=== PATIENT | female | born 1965 | race Caucasian/White ===

== ENCOUNTER → 2016-11-26 | Outpatient (CLI) | payer BC ==
[2016-11-26 06:09] LABS: ALANINE AMINOTRANSFERASE 28 U/L (9-52); ALKALINE PHOSPHATASE 62 U/L (38-126); ANION GAP 12 (5-19); ASPARTATE AMINO TRANSFERASE 25 U/L (14-36); BILIRUBIN,TOTAL 0.5 mg/dL (0.2-1.3); BLOOD UREA NITROGEN 16 mg/dL (7-20); CALCIUM 9.4 mg/dL (8.4-10.2); CARBON DIOXIDE 28 mmol/L (22-30); CHLORIDE 105 mmol/L (98-107); CHOLESTEROL 202.92 mg/dL (0-200); CREATININE RESULT 0.97 mg/dL (0.52-1.25); Direct HDL 72 mg/dL (>40); GLUCOSE 81 mg/dL (75-110); POTASSIUM 4.5 mmol/L (3.6-5.0); SODIUM 144.8 mmol/L (137-145); TOTAL PROTEIN 6.7 g/dL (6.3-8.2); TRIGLYCERIDES 131 mg/dL (<150)
[2016-11-26 06:19] LABS: DIRECT LDL 98 mg/dL (<100)
== END ==
LOC: LAB 05:03
PROVIDERS: ATTEND Specialist
DX: Z13.6 Encounter for screening for cardiovascular disorders (principal); Z13.1 Encounter for screening for diabetes mellitus; Z13.29 Encounter for screening for other suspected endocrine disorder; R10.12 Left upper quadrant pain
CPT/HCPCS: 36415; 80053; 80061; 83036; 84443; 86677

== ENCOUNTER → 2018-07-18 | Outpatient (CLI) | payer BC ==
--- NOTE | 2018-07-18 16:16 | RADIOLOGY REPORT (SQ) ---
EXAM DESCRIPTION: OS CALCIS/HEEL RIGHT COMPLETED DATE/TIME: 07/18/2018 3:11 pm REASON FOR STUDY: PAIN IN RT FOOT M79.671 PAIN IN RIGHT FOOT COMPARISON: None. NUMBER OF VIEWS: Two views. TECHNIQUE: Plantar and oblique radiographic images acquired of the right calcaneous. LIMITATIONS: None. FINDINGS: Moderate plantar and superior calcaneal spurs. No evidence of insufficiency fracture. No aggressive bone lesion. IMPRESSION: Calcaneal spurs. TECHNICAL DOCUMENTATION: JOB ID: [id number] [employer]- All Rights Reserved Reading location - IP/workstation name: [facility]-COUNT INCLUDES THE [email or web address]
== END ==
LOC: OD 14:52
PROVIDERS: ATTEND Family Medicine
DX: M79.671 Pain in right foot (principal); M77.31 Calcaneal spur, right foot

== ENCOUNTER → 2018-12-26 | Outpatient (CLI) | payer BC ==
[2018-12-26 09:08] LABS: ABSOLUTE BASOPHILS # (AUTO) 0.1 10^3/uL (0.0-0.2); ABSOLUTE EOSINOPHILS # (AUTO) 0.1 10^3/uL (0.0-0.6); ABSOLUTE LYMPHOCYTES (AUTO) 1.7 10^3/uL (0.5-4.7); ABSOLUTE MONOCYTES (AUTO) 0.5 10^3/uL (0.1-1.4); ABSOLUTE NEUT (AUTO) 3.4 10^3/uL (1.7-8.2); BASOPHILS % (AUTO) 1.1 % (0-2); HEMATOCRIT 39.3 % (36.0-47.0); HEMOGLOBIN 13.8 g/dL (12.0-15.5); LYMPHOCYTES % (AUTO) 29.6 % (13-45); MEAN CORPUSCULAR HGB CONC 35.1 g/dL (32.0-36.0); MEAN CORPUSCULAR VOLUME 88 fl (80-97); MONOCYTES % (AUTO) 8.4 % (3-13); PLATELET COUNT 266 10^3/uL (150-450); RED BLOOD COUNT 4.44 10^6/uL (3.72-5.28); RED CELL DISTRIBUTION WIDTH 12.8 % (11.5-14.0); SEGMENTED NEUTROPHILS % (AUTO) 58.9 % (42-78); TOTAL CELLS COUNTED % (AUTO) 100 %; WHITE BLOOD COUNT 5.7 10^3/uL (4.0-10.5)
[2018-12-26 09:31] LABS: CHOLESTEROL 193.43 mg/dL (0-200); TRIGLYCERIDES 95 mg/dL (<150)
[2018-12-26 09:41] LABS: DIRECT LDL 90 mg/dL (<100)
== END ==
LOC: OD 07:59
PROVIDERS: ATTEND Specialist
DX: Z13.1 Encounter for screening for diabetes mellitus (principal); Z13.220 Encounter for screening for lipoid disorders
CPT/HCPCS: 36415; 80061; 83036; 85025

== ENCOUNTER 2019-03-23 10:00 | Day surgery (SDC) | payer BC ==
[~2019-03-23 10:00] MED LIST: CHONDR SU A NA/HYALUR INTRAOC KIT (SURGICARE) ONE; EPINEPHRINE INJ/PF 1 MG/1 ML AMPULE ONE; FENTANYL CITRATE INJ/PF 100 MCG/2 ML AMPUL ONE; LIDOCAINE 1%/PHENYLEPHRINE 1.5% 1 ML VIAL ONE; MIDAZOLAM 2 MG/2 ML INJ ONE
[2019-03-23] MEDS: TROPICAMIDE 1% OPH SOLN 3 ML OS PRN ×3 (10:50→11:11)
[2019-03-23] MEDS: TETRACAINE HCL 0.5% OPH SOLN 4 ML OS PRN ×3 (10:50→11:21)
[2019-03-23] MEDS: BESIFLOXACIN HCL 0.6% OPH SUSP 5 ML BOTTLE OS PRN ×4 (10:51→11:52)
[2019-03-23] MEDS: CYCLOPENTOLATE 0.2%/PHENYLEPHRINE 1% OPH SOLN 2 ML OS PRN ×3 (10:51→11:11)
[2019-03-23] MEDS: KETOROLAC TROMETHAMINE 0.45% 4 DROP/0.4 ML DROPERETTE OS PRN ×2 (10:52→12:12)
[2019-03-23] MEDS ORDERED: MIDAZOLAM 2 MG/2 ML INJ ONE (11:13)
[2019-03-23] MEDS: DORZOLAMIDE HCL 2%/TIMOLOL MALEAT 0.5% OPH SOLN 10 ML OS PRN ×2 (11:52)
--- NOTE | 2019-03-23 20:40 | [facility] OPERATIVE REPORT E ---
[facility] NAME: AVIS JESSICA AGE: 53Y DATE OF SURGERY: 03/23/2019 ROOM: PREOPERATIVE DIAGNOSIS: CATARACT LEFT EYE. POSTOPERATIVE DIAGNOSIS: CATARACT LEFT EYE. OPERATION: Cataract extraction with insertion of an intraocular lens implant of the left eye with a toric multifocal lens. SURGEON: BISI MCCLELLAN M.D. ANESTHESIA: topical COMPLICATIONS: None. ESTIMATED BLOOD LOSS: None. PROCEDURE: After appropriate consent was obtained and calculations made, the patient was brought back to the operating room where the patient was prepped and draped in sterile fashion. A lid speculum was placed and attention was directed to a paracentesis where a paracentesis blade made a small incision. Viscoelastic was then used to inflate the anterior chamber. Next a 2.4 mm incision was made with the paracentesis blade. A continuous capsulorhexis forceps of approximately 5 mm was done using a cystitome and capsulorhexis forceps. Hydrodissection was carried out to make the lens freely mobile and then a divide and conquer technique was used to remove the lens with a CDE of approximately 4.0. Following this, the remaining cortical material was removed with irrigation/aspiration. After this the patient was then again marked. The marking procedure started in the preoperative holding area where 180 and 0 was marked with a marker. Now that the patient was in the operating room a 360-degree marker was used to lorna the axis at approximately 110 degrees and a toric lens of 19.5 diopters [id number] was injected into the bag after filling with viscoelastic and rotated to 81 degrees. The I/A was used to remove the viscoelastic material and the toric lens appeared to be appropriately aligned. Besivance and Cosopt were instilled into the eye and a rigid clear sheild placed. The patient returned to postoperative recovery in stable condition. DICTATING PHYSICIAN: BISI MCCLELLAN M.D. [id number] PHY#: [id number] ID: [id number] JOB#: [id number] ACCT: [id number] cc:BISI MCCLELLAN M.D. > MTDD
--- NOTE | 2019-03-23 20:40 | SURGICARE DISCHARGE SUMMARY E ---
[facility] Discharge Summary NAME: AVIS JESSICA AGE: 53Y ADMITTED: 03/23/2019 DISCHARGED: This is a 53-year-old female who underwent cataract extraction with toric IOL to the left eye. DIAGNOSIS: Cataract left eye. She underwent surgery because she was having difficulty driving at night and difficulty judging which lia she is in. She should be on a regular diet. No bending at the waist and no heavy lifting. She should use her moxifloxacin, Prolensa, and Predforte at 3:00 p.m. and 8:00 p.m. and sleep with a rigid shield. I will see her for her 1-day postop tomorrow. DICTATING PHYSICIAN: BISI MCCLELLAN M.D. [id number] PHY#: [id number] ID: [id number] JOB#: [id number] ACCT: [id number] cc:BISI MCCLELLAN M.D. > MTDD
== END 2019-03-26 12:34 | disposition home or self-care (01) ==
LOC: SC 10:00
PROVIDERS: ATTEND Internal Medicine
DX: H25.13 Age-related nuclear cataract, bilateral (principal); Z79.899 Other long term (current) drug therapy; H04.123 Dry eye syndrome of bilateral lacrimal glands
CPT/HCPCS: 66984; 00142; V2787; J2250; J3490 ×2; J0171; J3010; J2370; 142

== ENCOUNTER 2019-04-27 08:41 | Day surgery (SDC) | payer BC ==
[~2019-04-27 08:41] MED LIST changes: -CHONDR SU A NA/HYALUR INTRAOC KIT (SURGICARE) ONE; -EPINEPHRINE INJ/PF 1 MG/1 ML AMPULE ONE; -FENTANYL CITRATE INJ/PF 100 MCG/2 ML AMPUL ONE; +KETOROLAC TROMETHAMINE 0.45% 4 DROP/0.4 ML DROPERETTE OD PRN; -LIDOCAINE 1%/PHENYLEPHRINE 1.5% 1 ML VIAL ONE; -MIDAZOLAM 2 MG/2 ML INJ ONE
[2019-04-27] MEDS ORDERED: MIDAZOLAM 2 MG/2 ML INJ ONE ×3 (09:00→10:30)
[2019-04-27] MEDS: BESIFLOXACIN HCL 0.6% OPH SUSP 5 ML BOTTLE OD PRN ×4 (09:40→10:26)
[2019-04-27] MEDS: CYCLOPENTOLATE 0.2%/PHENYLEPHRINE 1% OPH SOLN 2 ML OD PRN ×3 (09:40→10:00)
[2019-04-27] MEDS: TETRACAINE HCL 0.5% OPH SOLN 4 ML OD PRN ×4 (09:40→10:05)
[2019-04-27] MEDS: TROPICAMIDE 1% OPH SOLN 3 ML OD PRN ×3 (09:40→10:00)
[2019-04-27] MEDS: EPINEPHRINE INJ/PF 1 MG/1 ML AMPULE ONE ×2 (10:13)
[2019-04-27] MEDS: LIDOCAINE 1%/PHENYLEPHRINE 1.5% 1 ML VIAL ONE ×2 (10:13)
[2019-04-27] MEDS: CHONDR SU A NA/HYALUR INTRAOC KIT (SURGICARE) ONE ×2 (10:13)
[2019-04-27] MEDS: DORZOLAMIDE HCL 2%/TIMOLOL MALEAT 0.5% OPH SOLN 10 ML OD PRN ×2 (10:26)
--- NOTE | 2019-04-28 11:25 | SURG[facility]ARE DISCHARGE SUMMARY E ---
[facility] Discharge Summary NAME: AVIS JESSICA AGE: 53Y ADMITTED: 04/27/2019 DISCHARGED: 04/27/2019 DIAGNOSIS: Cataract, right eye. SUMMARY: This is a 53-year-old female who underwent cataract extraction, right eye. She underwent surgery because she was having difficulty with glare on the computer and driving at night. DISCHARGE INSTRUCTIONS: She should be on a regular diet, no bending at her waist, and no heavy lifting. She should use her moxifloxacin, Prolensa, and Durezol at 3 p.m. and 8 p.m. and sleep with a rigid shield. I will see her for a 1-day postoperative tomorrow. DICTATING PHYSICIAN: BISI MCCLELLAN M.D. [id number] PHY#: [id number] ID: [id number] JOB#: [id number] ACCT: [id number] cc:BISI MCCLELLAN M.D. > MTDD
--- NOTE | 2019-04-28 11:25 | SURG[facility]ARE OPERATIVE REPORT E ---
[facility] Operative Report NAME: AVIS JESSICA AGE: 53Y DATE OF SURGERY: 04/27/2019 ROOM: PREOPERATIVE DIAGNOSIS: CATARACT, RIGHT EYE. POSTOPERATIVE DIAGNOSIS: CATARACT, RIGHT EYE. OPERATION: Cataract extraction with insertion of an IOL of the right eye. SURGEON: BISI MCCLELLAN M.D. ANESTHESIA: Topical. PROCEDURE: After obtaining appropriate consent, the patient's right eye was prepped and draped in sterile fashion as well as the surgeon in a sterile manner and cataract surgery was started. First a paracentesis blade was used to make a side-port incision. Viscoelastic was used to inflate the anterior chamber. Next a 2.4 mm incision was made with a 2.4 mm blade, clear corneal temporally. A continuous capsulorrhexis was made using a cystotome and Utrata forceps. Following this hydrodissection was carried out to make the lens fully loose and mobile and it was rotated 90 degrees. Following this, a xqzdvd-tij-wspfxzk technique was used to phacoemulsify the lens with a CDE of 3.34. The remaining cortex was removed with irrigation/aspiration. Provisc was instilled into the capsular bag to inflate the bag. A SN60WF, 20.0 diopter lens was placed. The remaining viscoelastic material was removed with irrigation/aspiration. Following this, the incision was found to be watertight. Besivance was instilled into the eye and a protective shield was placed over the eye. The patient returned to the postoperative recovery in stable condition. DICTATING PHYSICIAN: BISI MCCLELLAN M.D. [id number] PHY#: [id number] ID: [id number] JOB#: [id number] ACCT: [id number] cc:BISI MCCLELLAN M.D. >
== END 2019-04-27 10:56 | disposition home or self-care (01) ==
LOC: SC 08:41
PROVIDERS: ATTEND Internal Medicine
DX: H25.11 Age-related nuclear cataract, right eye (principal); Z96.1 Presence of intraocular lens; Z85.828 Personal history of other malignant neoplasm of skin
CPT/HCPCS: 66984; J2250; J3490 ×2; J0171; J2370; 142; V2632

== ENCOUNTER → 2019-05-17 | Outpatient (CLI) | payer BC ==
--- NOTE | 2019-05-17 18:15 | RADIOLOGY REPORT (SQ) ---
EXAM DESCRIPTION: MRI CERVICAL SPINE WITHOUT COMPLETED DATE/TIME: 05/17/2019 5:24 pm REASON FOR STUDY: M54.12 RADICULOPATHY, CERVICAL REGION M54.12 RADICULOPATHY, CERVICAL REGION COMPARISON: None. TECHNIQUE: Sagittal and Axial imaging includes T1, T2, STIR and gradient echo sequences. LIMITATIONS: None. FINDINGS: ALIGNMENT: Normal. VERTEBRAE: Intact. BONE MARROW: Mild reactive marrow changes at C6-7. DISCS: Normal. No significant abnormal signal or loss of height. HARDWARE: None in the spine. CORD AND BASE OF BRAIN: Normal in size and signal intensity. SOFT TISSUES: No soft tissue masses. C1-C2: No significant spinal stenosis. C2-C3: No significant spinal stenosis or exit foraminal stenosis. C3-C4: No significant spinal stenosis or exit foraminal stenosis. C4-C5: No significant spinal stenosis or exit foraminal stenosis. C5-C6: A shallow broad-based disc/ osteophyte complex narrows the anterior CSF space but does not imp yasmine upon or deform the spinal cord. There is no foraminal stenosis. C6-C7: There is a shallow broad-based disc/ osteophyte complex with no central canal or foraminal arlet nosis. C7-T1: No significant spinal stenosis or exit foraminal stenosis. UPPER THORACIC: Incompletely imaged. No significant spinal stenosis or exit foraminal stenosis. OTHER: No other significant finding. IMPRESSION: There are shallow broad-based disc/ osteophyte complexes at C5-6 and C6-7 with no centra l canal or foraminal stenoses. TECHNICAL DOCUMENTATION: JOB ID: [id number] [employer]- All Rights Reserved Reading location - IP/workstation name: [email or web address]
== END ==
LOC: RAD 16:36
PROVIDERS: ATTEND Family Medicine
DX: M54.12 Radiculopathy, cervical region (principal)
CPT/HCPCS: 72141

== ENCOUNTER → 2020-10-24 | Outpatient (CLI) | payer BC ==
[~2020-10-24] MED LIST changes: +COVID-19 VACCINE (PFIZER)/PF 30 MCG/0.3 ML VIAL IM ONE; +EPINEPHRINE INJ/PF 1 MG/1 ML AMPULE IM PRN; -KETOROLAC TROMETHAMINE 0.45% 4 DROP/0.4 ML DROPERETTE OD PRN
== END ==
LOC: EMPHEALTH 08:50
PROVIDERS: ATTEND Internal Medicine
DX: Z23 Encounter for immunization (principal)
CPT/HCPCS: 91300

== ENCOUNTER 2020-11-10 17:42 | Emergency (ER) | payer BC ==
[2020-11-10] MEDS ORDERED: HYDROCODONE/ACETAMINOPHEN 5-325 MG TABLET PO ONE ×2 (18:15→21:13)
--- NOTE | 2020-11-10 18:39 | ER Document Report ---
ED Medical Screen (RME) - General Chief Complaint: Fall Stated Complaint: FALL/LACERATION,ARM PAIN Time Seen by Provider: 11/10/20 18:10 Primary Care Provider: HAN RAE MD [Primary Care Provider] - Follow up as needed Mode of Arrival: Ambulatory Information source: Patient Notes: HPI; 55-year-old female presents to the emergency room complaining of right sh oulder and upper arm pain. Patient states she slipped and fell at home landing on her right shoulder and right upper arm. States unable to move arm secondary to pain. No medications for symptoms. Patient is right-handed. Also hit her right eyebrow sustaining a laceration but denies any loss of consciousness. Tetanus is up-to-date. PE: Alert and oriented x3. PERRLA, EOMI. 1/4 cm laceration noted to the right eyelid. The bleeding is controlled. Lungs: Clear to auscultation without rales, rhonchi, wheezes. Heart: Regular rate rhythm without murmurs, rubs, gallops. Tenderness on palpation to the anterior aspect of the right shoulder. Humerus is nontender to palpation. Able to fully move right elbow and right wrist without difficulty or pain. Unable to fully assess shoulder secondary to pain. I have greeted and performed a rapid initial assessment of this patient. A comprehensive ED assessment and evaluation of the patient, analysis of test results and completion of the medical decision making process will be conducted by additional ED providers. I have specifically instructed the patient or family members with the patient to immediately return to any nursing staff óscar uld anything change in the patient's condition or with their chief complaint. TRAVEL OUTSIDE OF THE [place] IN LAST 30 DAYS: No - Related Data Allergies/Adverse Reactions: Penicillins Allergy (Verified 11/10/20 18:10) unknown Past Medical History - Past Medical History Cardiac Medical History: Denies: Hx Coronary Artery Disease, Hx Heart Attack, Hx Hypertension Pulmonary Medical History: Denies: Hx Asthma, Hx Bronchitis, Hx COPD, Hx Pneumonia Neurological Medical History: Denies: Hx Cerebrovascular Accident, Hx Seizures GI Medical History: Denies: Hx Hepatitis, Hx Hiatal Hernia, Hx Ulcer Musculoskeltal Medical History: Denies Hx Arthritis Infectious Medical History: Denies: Hx Hepatitis Past Surgical History: Denies: Hx Hysterectomy, Hx Mastectomy, Hx Open Heart Surgery, Hx Pacemaker - Immunizations Hx Diphtheria, Pertussis, Tetanus Vaccination: Yes Physical Exam - Vital signs Vitals: Temp Pulse Resp BP Pulse Ox 99 F 62 16 105/66 100 11/10/20 18:14 11/10/20 18:14 11/10/20 18:14 11/10/20 18:14 11/10/20 18:14 Course - Vital Signs Vital signs: Temp Pulse Resp BP Pulse Ox 99 F 62 16 105/66 100 11/10/20 18:14 11/10/20 18:14 11/10/20 18:14 11/10/20 18:14 11/10/20 18:14 Doctor's Discharge - Discharge Referrals: HAN RAE MD [Primary Care Provider] - Follow up as needed
--- NOTE | 2020-11-10 18:51 | RADIOLOGY REPORT (SQ) ---
EXAM DESCRIPTION: HUMERUS RIGHT; SHOULDER RIGHT 2 OR MORE VIEWS IMAGES COMPLETED DATE/TIME: 11/10/2020 5:36 pm REASON FOR STUDY: injury COMPARISON: None. NUMBER OF VIEWS: Four views TECHNIQUE: AP and lateral views of the right humerus and AP internal rotation and scapular Y views o f the right shoulder. LIMITATIONS: None. FINDINGS: MINERALIZATION: Normal. BONES: There appears to be an acute impacted nondisplaced and nonangulated fracture of the right lauren ral neck. Normal glenohumeral joint space alignment. The clavicle is intact. Mild osteoarthritis a t the acromioclavicular joint. The glenoid is intact. Scapula is intact. Visualized ribs are intac t. SOFT TISSUES: Small glenohumeral joint effusion. OTHER: No other significant finding. IMPRESSION: 1. Acute impacted nondisplaced fracture proximal right humeral neck. Small glenohumeral joint effusi on. 2. Mild osteoarthritis at the acromioclavicular joint. TECHNICAL DOCUMENTATION: JOB ID: [id number] 2010 [employer]- All Rights Reserved Reading location - IP/workstation name: [id number]
--- NOTE | 2020-11-10 18:51 | RADIOLOGY REPORT (SQ) ---
EXAM DESCRIPTION: HUMERUS RIGHT; SHOULDER RIGHT 2 OR MORE VIEWS IMAGES COMPLETED DATE/TIME: 11/10/2020 5:36 pm REASON FOR STUDY: injury COMPARISON: None. NUMBER OF VIEWS: Four views TECHNIQUE: AP and lateral views of the right humerus and AP internal rotation and scapular Y views o f the right shoulder. LIMITATIONS: None. FINDINGS: MINERALIZATION: Normal. BONES: There appears to be an acute impacted nondisplaced and nonangulated fracture of the right lauren ral neck. Normal glenohumeral joint space alignment. The clavicle is intact. Mild osteoarthritis a t the acromioclavicular joint. The glenoid is intact. Scapula is intact. Visualized ribs are intac t. SOFT TISSUES: Small glenohumeral joint effusion. OTHER: No other significant finding. IMPRESSION: 1. Acute impacted nondisplaced fracture proximal right humeral neck. Small glenohumeral joint effusi on. 2. Mild osteoarthritis at the acromioclavicular joint. TECHNICAL DOCUMENTATION: JOB ID: [id number] 2010 [employer]- All Rights Reserved Reading location - IP/workstation name: [id number]
[2020-11-10] MEDS ORDERED: ONDANSETRON 4 MG TAB.RAPDIS PO ONE (21:15)
--- NOTE | 2020-11-10 22:10 | ER Document Report ---
ED Fall - General Chief Complaint: Fall Stated Complaint: FALL/LACERATION,ARM PAIN Time Seen by Provider: 11/10/20 18:10 Primary Care Provider: HAN RAE MD [Primary Care Provider] - Follow up as needed CATHY TORRES JR, DO [ACTIVE PROVISIONAL STAFF] - Follow up in 3-5 days Mode of Arrival: Ambulatory Information source: Patient TRAVEL OUTSIDE OF THE [place] IN LAST 30 DAYS: No - HPI Notes: Patient is a 55-year-old female who presents after a fall. Patient states that she was folding laundry and tripped over the laundry basket. She fell onto her right arm and hit her right face. Patient denies loss of consciousness. She has pain to her right arm. She also has a cut to her left eyebrow. Patient is left-handed. This happened just prior to arrival. Patient denies any other injuries. She is not on any blood thinners. Her last tetanus was in 2018 so she is up-to-date. - Related data Allergies/Adverse Reactions: Penicillins Allergy (Verified 11/10/20 18:10) unknown Past Medical History - General Information source: Patient - Social History Smoking Status: Never Smoker Family History: Reviewed & Not Pertinent - Past Medical History Cardiac Medical History: Denies: Hx Coronary Artery Disease, Hx Heart Attack, Hx Hypertension Pulmonary Medical History: Denies: Hx Asthma, Hx Bronchitis, Hx COPD, Hx Pneumonia Neurological Medical History: Denies: Hx Cerebrovascular Accident, Hx Seizures GI Medical History: Denies: Hx Hepatitis, Hx Hiatal Hernia, Hx Ulcer Musculoskeletal Medical History: Denies Hx Arthritis Infectious Medical History: Denies: Hx Hepatitis Past Surgical History: Reports: Hx Cholecystectomy. Denies: Hx Hysterectomy, Hx Mastectomy, Hx Open Heart Surgery, Hx Pacemaker - Immunizations Hx Diphtheria, Pertussis, Tetanus Vaccination: Yes Review of Systems - Review of Systems Notes: CONSTITUTIONAL: No fever, fatigue or weight loss. SKIN: No rash. HENT: No congestion, ear pain, or sore throat. EYES: No recent vision problems or eye pain. ENDOCRINE: No thyroid problems. No polyuria or polydipsia. CARDIOVASCULAR: No chest pain or edema. RESPIRATORY: No cough, shortness of breath, congestion, or wheezing. GASTROINTESTINAL: No abdominal pain. Positive for nausea after pain medicine. MUSCULOSKELETAL: Positive for left arm pain. NEUROLOGIC: No seizures. No headache, focal weakness or sensory changes. HEMATOLOGIC: No unusual bruising or bleeding. PSYCHIATRIC: No depression or anxiety. Physical Exam - Vital signs Vitals: Temp Pulse Resp BP Pulse Ox 99 F 62 16 105/66 100 11/10/20 18:14 11/10/20 18:14 11/10/20 18:14 11/10/20 18:14 11/10/20 18:14 - General General appearance: Appears well In distress: None Notes: VITAL SIGNS: Within normal limits. GENERAL: No acute distress, non-toxic appearance. HEAD: Normal with no signs of head trauma. EYES: Conjunctiva normal, no discharge. Small 1 cm laceration to the left lower eyebrow area. Bleeding is controlled. EARS: Hearing grossly intact. NOSE: Normal. NECK: Normal range of motion, no tenderness. CHEST: Clear breath sounds bilaterally. No wheezes, rales, or rhonchi. CARDIAC: Regular rate and rhythm. VASCULAR: No Edema. Peripheral pulses normal and equal in all extremities. Strong right radial pulse. ABDOMEN: Normal and soft. MUSCULOSKELETAL: Disomfort to left shoulder. No lacerations to the arm. Range of motion is limited due to pain. Sensation testing is intact. NEUROLOGICAL: Alert and oriented x 3. No focal sensory or strength deficits. Speech normal. Follows commands appropriately. PSYCHIATRIC: Normal Affect, judgement and mood. SKIN: Normal appearance with no rashes or lesions. Course - Re-evaluation Re-evalutation: 11/11/20 01:53 Patient has a humeral fracture. I did discuss with Dr. Torres from orthopedics. He recommended sending her home in a sling. He will follow-up in the office. Patient's laceration was repaired with Dermabond. It was very superficial. Area was cleaned and explored with no foreign body. She did start developing some ecchymosis around her eye several hours in her ER stay. She is nontender. Do not believe she requires a CT scan. Patient will be discharged with hydrocodone and Zofran. She was given strict return precautions. - Vital Signs Vital signs: Temp Pulse Resp BP Pulse Ox 98.9 F 73 14 110/72 97 11/10/20 23:56 11/10/20 23:56 11/10/20 23:56 11/10/20 23:56 11/10/20 23:56 - Laboratory Results Critical Laboratory Results Reviewed: No Critical Results - Radiology Results Critical Radiology Results Reviewed: No Critical Results Procedures - Laceration/Wound Repair Right Face Time completed: 23:00 Wound length (cm): 1 Wound's Depth, Shape: Superficial Laceration pre-procedure: Shur-Clens applied Wound explored: Clean Wound Repaired With: Dermabond Complications: No Discharge - Discharge Clinical Impression: Right humeral fracture Qualifiers: Encounter type: initial encounter Humerus Location: proximal Fracture type: closed Fracture morphology: other fracture Fracture alignment: nondisplaced Qualified Code(s): S42.294A - Other nondisplaced fracture of upper end of right humerus, initial encounter for closed fracture Fall Qualifiers: Encounter type: initial encounter Qualified Code(s): W19.XXXA - Unspecified fall, initial encounter Laceration of face Qualifiers: Encounter type: initial encounter Qualified Code(s): S01.81XA - Laceration without foreign body of other part of head, initial encounter Condition: Stable Disposition: HOME, SELF-CARE Instructions: Laceration Care ([facility]), Fracture Proximal Humerus, Temporary Sling ([facility]) Additional Instructions: Please follow-up with orthopedics this week. Return to the ER immediately for any numbness, tingling, worsening pain. Your laceration was Dermabonded today. Keep the area clean and dry. Do not use bacitracin on it. Make sure you wear sunscreen to prevent scarring after the injury is healed. You may also use Mederma. Return to the ER for any redness, swelling, fevers, worsening symptoms. Prescriptions: Ondansetron [Zofran Odt 4 mg Tablet] 4 mg PO Q6H PRN 7 Days #10 tab.rapdis PRN Reason: Referrals: HAN RAE MD [Primary Care Provider] - Follow up as needed CATHY TORRES JR, DO [ACTIVE PROVISIONAL STAFF] - Follow up in 3-5 days
[2020-11-10] MEDS ORDERED: HYDROCODONE/ACETAMINOPHEN 5-325 MG (6 TAB/ER DISP) PO PRN (22:26)
--- NOTE | 2020-11-10 22:48 | PDOC CONSULTATION ---
Consultation Consult Date: 11/10/20 Provider Consulted: CATHY TORRES JR History of Present Illness Admission Date/PCP: HAN RAE MD Patient complains of: Right shoulder pain History of Present Illness: AVIS JESSICA is a 55 year old female who fell at home today. She was standing behind a counter and slipped on her hardwood floor when it was wet. She struck her right shoulder and right orbit. She complains of headache, nausea and significant right shoulder pain that is severe, 8 out of 10, aching in nature, worse with any attempted motion, improved with rest and pain medication. She denies other altered sensorium. She denies blurry vision. She vomited while in my presence. She denies any other associated injury aside from the above. She denies numbness or loss of motor function of the right upper extremity. Past Medical History Cardiac Medical History: Denies: Coronary Artery Disease, Myocardial Infarction, Hypertension Pulmonary Medical History: Denies: Asthma, Bronchitis, Chronic Obstructive Pulmonary Disease (COPD), Pneumonia Neurological Medical History: Denies: Seizures GI Medical History: Denies: Hepatitis, Hiatal Hernia Musculoskeltal Medical History: Denies: Arthritis Hematology: Denies: Anemia, Sickle Cell Disease Past Surgical History Past Surgical History: Reports: Cholecystectomy Denies: Amputation, Hysterectomy, Mastectomy, Pacemaker Social History Smoking Status: Never Smoker Family History Parental Family History Reviewed: Yes Children Family History Reviewed: Yes Sibling(s) Family History Reviewed.: Yes Medication/Allergy Home Medications: Duovee 1 tab PO DAILY 03/16/19 Besifloxacin HCl [Besivance 0.6% Oph Susp 5 ml] 1 drop OP ASDIR PRN 03/23/19 Bromfenac Sodium [Prolensa] 1.6 ml OP ASDIR PRN 03/23/19 Difluprednate [Durezol] 5 ml OP ASDIR PRN 03/23/19 Ondansetron [Zofran Odt 4 mg Tablet] 4 mg PO Q6H PRN 7 Days #10 tab.rapdis 11/10/20 Allergies/Adverse Reactions: Penicillins Allergy (Verified 11/10/20 18:10) unknown Review of Systems Review of Systems: Constitutional: ABSENT: anorexia, chills, night sweats Cardiovascular: ABSENT: chest pain Respiratory: ABSENT: dyspnea Gastrointestinal: present: vomiting Genitourinary: ABSENT: dysuria Integumentary: ABSENT: rash Neurological: ABSENT: confusion, memory loss, numbness Psychiatric: ABSENT: hallucinations Hematologic/Lymphatic: ABSENT: easy bleeding Physical Exam Vital Signs: Temp Pulse Resp BP Pulse Ox 99 F 62 16 105/66 100 11/10/20 18:14 11/10/20 18:14 11/10/20 18:14 11/10/20 18:14 11/10/20 18:14 Intake & Output 11/09/20 11/10/20 11/11/20 06:59 06:59 06:59 Weight 88.6 kg Physical Exam: General appearance: PRESENT: no acute distress, cooperative, well-nourished Head exam: PRESENT: The patient has a small abrasion above her right eyebrow with surrounding ecchymosis. Extraocular muscles and pupil reaction are appropriate. Eye exam: PRESENT: EOMI Ear exam: PRESENT: normal external ear exam Mouth exam: PRESENT: neck supple Neck exam: ABSENT: tracheal deviation Respiratory exam: PRESENT: symmetrical, unlabored. ABSENT: accessory muscle use, wheezes Pulses: PRESENT: normal radial pulses, normal dorsalis pedis pulse Vascular exam: PRESENT: normal capillary refill GI/Abdominal exam: ABSENT: distended, firm Extremities exam: PRESENT: full ROM of bilateral shoulders, elbows wrists, knees, hips and ankles without pain Musculoskeletal exam: PRESENT: full ROM, normal inspection of all 4 extremities aside from that noted below. Neurological exam: PRESENT: alert, awake, oriented to person, oriented to place, oriented to time Psychiatric exam: PRESENT: appropriate affect. ABSENT: agitated Focused psych exam: ABSENT: catatonic Skin exam: PRESENT: intact. ABSENT: dry All as above aside from that noted in the HPI and the following: Right upper extremity sensation grossly intact to radial median and ulnar nerve. upper extremity motor function grossly intact to radian median ulnar nerve AIN and PIN Pulses 2+, capillary refill less than 2 seconds Compartments soft, no tenderness to palpation skin intact No elbow pain with range of motion. Right shoulder is tender to palpation. There is no numbness to the axillary nerve distribution. There is no deformity. Results Impressions: Humerus X-Ray 11/10/20 18:15 IMPRESSION: 1. Acute impacted nondisplaced fracture proximal right humeral neck. Small glenohumeral joint effusion. 2. Mild osteoarthritis at the acromioclavicular joint. Shoulder X-Ray 11/10/20 18:15 IMPRESSION: 1. Acute impacted nondisplaced fracture proximal right humeral neck. Small glenohumeral joint effusion. 2. Mild osteoarthritis at the acromioclavicular joint. Assessment & Plan - Diagnosis (1) Right humeral fracture Qualifiers: Encounter type: initial encounter Humerus Location: proximal Fracture type: closed Fracture morphology: other fracture Fracture alignment: nondisplaced Qualified Code(s): S42.294A - Other nondisplaced fracture of upper end of right humerus, initial encounter for closed fracture Is this a current diagnosis for this admission?: Yes Plan: She has what appears to be a 2 part right proximal humerus fracture that is slightly valgus impacted. At this time it appears appropriate for continued nonoperative management. I discussed the implications of this with the patient. -She will follow my office in the next week for further radiologic evaluation Encourage [id number] pain medications including Tylenol and Aleve, ice for comfort. Encourage the patient to protect her shoulder while in the sling and avoid any weightbearing until further instructions from my office She may remove the sling and protected settings in order to maintain elbow range of motion.
[2020-11-10 23:57] VITALS: BP 110/72
== END 2020-11-10 23:59 | disposition home or self-care (01) ==
LOC: ER 17:42
DX: S42.294A Other nondisplaced fracture of upper end of right humerus, initial encounter for closed fracture (principal); S01.81XA Laceration without foreign body of other part of head, initial encounter; W01.0XXA Fall on same level from slipping, tripping and stumbling without subsequent striking against object, initial encounter; Y93.E2 Activity, laundry; Z88.0 Allergy status to penicillin
CPT/HCPCS: 99284; 73060; 73030; 12011; S0119

== ENCOUNTER → 2020-11-15 | Outpatient (CLI) | payer BC | LOC: EMPHEALTH 11:26 | PROVIDERS: ATTEND Internal Medicine | DX: Z23 Encounter for immunization (principal) | CPT/HCPCS: 91300 ==